=== PATIENT | male | born 1945 | race Caucasian/White ===

== ENCOUNTER 2017-06-22 23:12 | Emergency (ER) | payer MEDICARE ==
[2017-06-22 23:37] LABS: BASOPHILS 0.2 % (0-2); EOSINOPHILS 4.8 % (0-7); HEMATOCRIT 38.5 % (42.0-54.0); HEMOGLOBIN 13.1 g/dL (13.5-17.5); IMMATURE GRANULOCYTES 1.4 % (0-5); LYMPHOCYTES 22.1 % (15-50); MCH 29.6 pg (26.0-34.0); MCV 86.9 fL (80.0-100.0); MEAN PLATELET VOLUME 11.9 fL (7.4-10.4); MONOCYTES 12.7 % (2-11); NEUTROPHILS 58.8 % (40-80); PLATELET COUNT 170 10x3/uL (130-400); RBC 4.43 10x6/uL (4.20-6.10); RDW 14.4 % (11.5-14.5); WBC 8.8 10x3/uL (4.8-10.8)
[2017-06-23 00:01] LABS: ALBUMIN 3.3 g/dL (3.4-5.0); BILIRUBIN - TOTAL 0.51 mg/dL (0.2-1.3); CALCIUM 8.6 mg/dL (8.5-10.1); CARBON DIOXIDE 27.3 mmol/L (21.0-32.0); CREATININE - SERUM 1.5 mg/dL (0.6-1.3); PROTEIN - SERUM 7.3 g/dL (6.4-8.2)
[2017-06-23 00:03] LABS: INR 1.11 (0.85-1.17); PROTIME 13.9 SECONDS (11.6-15.0)
[2017-06-23 00:04] LABS: APTT 36.2 SECONDS (22.8-39.4)
[2017-06-23 00:05] LABS: ANION GAP 14.5 mmol/L (8-16); POTASSIUM - SERUM 3.8 mmol/L (3.5-5.1)
== END 2017-06-23 01:25 | disposition home or self-care (01) ==
LOC: D.ER 23:12 → EDBD 23:12 → D.ER 06-23 01:25
PROVIDERS: Physician Assistant Medical
DX: G45.9 Transient cerebral ischemic attack, unspecified (principal); I10 Essential (primary) hypertension; I45.2 Bifascicular block

== ENCOUNTER 2017-11-03 13:06 | Inpatient (IN) | payer MEDICARE ==
[~2017-11-03] VITALS: Ht 170.2 cm; Wt 74.8 kg
--- NOTE | ~2017-11-03 | HP ---
PATIENT: RON MARX MEDICAL RECORD: [id number] ACCOUNT: [id number] LOCATION:[id number] : [id number] ADMISSION DATE: 11/03/17 HISTORY AND PHYSICAL EXAMINATION HISTORY OF PRESENT ILLNESS: A 72-year-old male brought into the Emergency Room via EMS with right lower quadrant abdominal pain, began last night, worse during the day today. Reported a brief episode of nausea, vomiting, diarrhea. Symptoms significantly worse today. PAST MEDICAL HISTORY: Significant for diabetes, diet controlled; chronic AFib; colon resection for necrotic bowel; appendectomy; cholecystectomy. ALLERGIES: REPORTED SULFA AND WELLBUTRIN. CURRENT MEDICATIONS: Listed as metoprolol 25 mg daily, morphine b.i.d., ondansetron 4 mg every 4 hours, losartan 50 mg daily, levothyroxine 300 mcg daily, lactobacillus, hydralazine 50 mg t.i.d., Eliquis 5 mg b.i.d., buspirone 5 mg t.i.d., amlodipine 10 mg daily, pyridoxine 100 mg once a day, sotalol 120 mg b.i.d., venlafaxine 75 mg daily. REVIEW OF SYSTEMS: GENERAL: No acute change in weight or appetite. HEENT: No cephalgia, visual changes, tinnitus, epistaxis, or dysphagia. CARDIOVASCULAR: History as above. Denies chest pain, denies palpitations. PULMONARY: Denies hemoptysis, denies night sweats. GASTROINTESTINAL: Denies hematemesis, hematochezia, or melena. Does admit the right lower quadrant abdominal pain, acute onset. Brief nausea and vomiting. MUSCULOSKELETAL: No acute changes. ENDOCRINE: Denies polyuria, polydipsia, or polyphagia. Reports acute elevation in his glucose to the 300s, where he is normally controlled with diet. PHYSICAL EXAMINATION: VITAL SIGNS: Temperature 97.9, blood pressure 156/82, heart rate 85, respirations 16, O2 sats 99%. GENERAL: Alert, oriented, presently in no acute distress. He received Dilaudid in the Emergency Room. HEENT: Head: Normocephalic, atraumatic. Eyes: Pupils are equally round and reactive to light and accommodation. Extraocular muscles are intact. Conjunctivae not injected. Ears: Canals patent. TMs are intact. Nose: Nares patent without drainage. Throat: No erythema. No exudates. NECK: Supple. No lymphadenopathy. No JVD. HEART: Regular rate and rhythm. No S3 or S4. No rub. LUNGS: Clear to auscultation bilaterally. Breathing is nonlabored. ABDOMEN: Hypoactive bowel sounds. Right lower quadrant tenderness. No rebound, no guarding, no palpable mass. EXTREMITIES: Present times 4. No edema. NEUROLOGIC: Intact. SKIN: Warm and dry. No rash. ASSESSMENT AND PLAN: 1. Right lower quadrant abdominal pain. Discussed the case with general surgery, Dr. Ervin. Agrees with IV antibiotics, IV fluids, bowel rest. He will follow. CT of the abdomen, no acute findings. 2. Diabetes. Sliding scale insulin. HISTORY AND PHYSICAL [id number] RON MARX 3. Chronic atrial fibrillation. Resume home medications. Monitor. TRANSINT:[id number] Voice Confirmation ID: [id number] DOCUMENT ID: [id number] MARIE PALACIO DO at 0751 CC: [id number] DICTATION DATE: 11/03/171804 [employer]: 11/03/172025 ADM IN [facility] [address] [place] [address]
[2017-11-03 13:49] LABS: BASOPHILS 0.1 % (0-2); EOSINOPHILS 0.3 % (0-7); HEMATOCRIT 41.2 % (42.0-54.0); HEMOGLOBIN 14.3 g/dL (13.5-17.5); IMMATURE GRANULOCYTES 0.6 % (0-5); LYMPHOCYTES 10.7 % (15-50); MCH 29.2 pg (26.0-34.0); MCHC 34.7 g/dL (31.0-37.0); MCV 84.1 fL (80.0-100.0); MEAN PLATELET VOLUME 12.3 fL (7.4-10.4); MONOCYTES 3.6 % (2-11); NEUTROPHILS 84.7 % (40-80); PLATELET COUNT 198 10x3/uL (130-400); RDW 14.6 % (11.5-14.5); WBC 14.2 10x3/uL (4.8-10.8)
[2017-11-03 14:11] LABS: ALBUMIN 3.6 g/dL (3.4-5.0); ANION GAP 21.2 mmol/L (8-16); BILIRUBIN - TOTAL 1.34 mg/dL (0.2-1.3); CALCIUM 10.5 mg/dL (8.5-10.1); CARBON DIOXIDE 22.5 mmol/L (21.0-32.0); CREATININE - SERUM 1.4 mg/dL (0.6-1.3); POTASSIUM - SERUM 3.7 mmol/L (3.5-5.1); PROTEIN - SERUM 8.3 g/dL (6.4-8.2)
[2017-11-03 17:42] VITALS: BP 156/82; BMI 25.9
[2017-11-03] MEDS ORDERED: NORVASC10 MG PO (17:45)
[2017-11-03] MEDS ORDERED: ELIQUIS5 MG PO (17:46)
[2017-11-03] MEDS ORDERED: HYDRALAZINE HCL50 MG PO (17:46)
[2017-11-03] MEDS ORDERED: DEXILANT60 MG PO (17:47)
[2017-11-03] MEDS ORDERED: PROBIOTIC1 EAC1 PO (17:47)
[2017-11-03] MEDS ORDERED: LEVOXYL200 MCG PO (17:47)
[2017-11-03] MEDS ORDERED: COZAAR100 MG PO (17:48)
[2017-11-03] MEDS ORDERED: TOPROL XL25 MG PO (17:53)
[2017-11-03] MEDS ORDERED: MS CONTIN15 MG PO (17:54)
[2017-11-03] MEDS ORDERED: ZOFRAN4 MG PO (17:56)
[2017-11-03] MEDS ORDERED: PYRIDOXINE HCL100 MG PO (17:57)
[2017-11-03] MEDS ORDERED: EFFEXOR75 MG PO (17:58)
[2017-11-03] MEDS ORDERED: BETAPACE 120 M120 MG PO (17:58)
[2017-11-03] MEDS ORDERED: VITAMIN C1000 MG PO (17:59)
[2017-11-03] MEDS ORDERED: VITAMIN D31000 UNIT PO (18:00)
[2017-11-03 21:12] VITALS: BP 131/71
[2017-11-04 01:20] LABS: APPEARANCE CLEAR (CLEAR); BILIRUBIN NEGATIVE (NEGATIVE); COLOR YELLOW (YELLOW); GLUCOSE NEGATIVE (NEGATIVE); KETONE NEGATIVE (NEGATIVE); NITRITE NEGATIVE (NEGATIVE); PROTEIN 2+ mg/dL (NEGATIVE); SPECIFIC GRAVITY 1.015 (1.005-1.020); UROBILINOGEN NORMAL (NORMAL)
[2017-11-04 04:47] LABS: BASOPHILS 0.1 % (0-2); EOSINOPHILS 0.8 % (0-7); HEMATOCRIT 37.8 % (42.0-54.0); HEMOGLOBIN 12.9 g/dL (13.5-17.5); IMMATURE GRANULOCYTES 0.4 % (0-5); LYMPHOCYTES 18.9 % (15-50); MCH 29.3 pg (26.0-34.0); MCHC 34.1 g/dL (31.0-37.0); MCV 85.9 fL (80.0-100.0); MEAN PLATELET VOLUME 11.8 fL (7.4-10.4); MONOCYTES 7.7 % (2-11); NEUTROPHILS 72.1 % (40-80); PLATELET COUNT 181 10x3/uL (130-400); WBC 12.6 10x3/uL (4.8-10.8)
[2017-11-04 05:08] LABS: ALBUMIN 3.3 g/dL (3.4-5.0); ANION GAP 13.2 mmol/L (8-16); BILIRUBIN - TOTAL 1.11 mg/dL (0.2-1.3); CALCIUM 9.4 mg/dL (8.5-10.1); CARBON DIOXIDE 29.8 mmol/L (21.0-32.0); CREATININE - SERUM 1.2 mg/dL (0.6-1.3); PROTEIN - SERUM 7.6 g/dL (6.4-8.2)
[2017-11-04 05:09] LABS: INR 1.12 (0.85-1.17)
[2017-11-04 05:10] LABS: APTT 34.7 SECONDS (22.8-39.4)
[2017-11-04 08:38] VITALS: BP 132/62
[2017-11-04 12:18] VITALS: BMI 25.8
[2017-11-04 12:23] VITALS: BP 113/58
[2017-11-04 14:26] VITALS: Ht 170.2 cm; Wt 74.8 kg
[2017-11-04 16:37] VITALS: BP 123/74
[2017-11-04 20:29] VITALS: BP 131/71
[2017-11-05 04:14] VITALS: BP 127/70
[2017-11-05 05:01] LABS: BASOPHILS 0.2 % (0-2); EOSINOPHILS 2.7 % (0-7); HEMATOCRIT 37.7 % (42.0-54.0); HEMOGLOBIN 12.9 g/dL (13.5-17.5); IMMATURE GRANULOCYTES 0.4 % (0-5); LYMPHOCYTES 21.4 % (15-50); MCH 29.5 pg (26.0-34.0); MCHC 34.2 g/dL (31.0-37.0); MCV 86.1 fL (80.0-100.0); MONOCYTES 9.1 % (2-11); NEUTROPHILS 66.2 % (40-80); PLATELET COUNT 184 10x3/uL (130-400); RBC 4.38 10x6/uL (4.20-6.10); RDW 14.6 % (11.5-14.5); WBC 11.5 10x3/uL (4.8-10.8)
[2017-11-05 05:26] LABS: ANION GAP 17.1 mmol/L (8-16); BILIRUBIN - TOTAL 1.15 mg/dL (0.2-1.3); CALCIUM 8.6 mg/dL (8.5-10.1); CARBON DIOXIDE 25.7 mmol/L (21.0-32.0); CREATININE - SERUM 1.2 mg/dL (0.6-1.3); MAGNESIUM - SERUM 1.5 mg/dL (1.8-2.4); PHOSPHOROUS 3.4 mg/dL (2.5-4.9); POTASSIUM - SERUM 3.8 mmol/L (3.5-5.1); PROTEIN - SERUM 7.1 g/dL (6.4-8.2)
[2017-11-05 08:32] VITALS: BP 141/81
[2017-11-05 11:44] VITALS: BP 132/76
[2017-11-05 15:17] VITALS: BP 130/74
[2017-11-05 21:33] VITALS: BP 123/68
[2017-11-06 00:25] VITALS: BP 118/56
[2017-11-06 04:21] VITALS: BP 122/59
[2017-11-06 04:53] LABS: BASOPHILS 0.3 % (0-2); EOSINOPHILS 2.3 % (0-7); HEMATOCRIT 36.4 % (42.0-54.0); HEMOGLOBIN 12.4 g/dL (13.5-17.5); IMMATURE GRANULOCYTES 0.4 % (0-5); LYMPHOCYTES 17.9 % (15-50); MCH 28.8 pg (26.0-34.0); MCHC 34.1 g/dL (31.0-37.0); MCV 84.7 fL (80.0-100.0); MEAN PLATELET VOLUME 11.5 fL (7.4-10.4); MONOCYTES 9.6 % (2-11); NEUTROPHILS 69.5 % (40-80); PLATELET COUNT 166 10x3/uL (130-400); RDW 14.4 % (11.5-14.5); WBC 10.8 10x3/uL (4.8-10.8)
[2017-11-06 05:12] LABS: ALBUMIN 3.3 g/dL (3.4-5.0); ANION GAP 13.2 mmol/L (8-16); BILIRUBIN - TOTAL 1.1 mg/dL (0.2-1.3); CALCIUM 8.4 mg/dL (8.5-10.1); CARBON DIOXIDE 25.8 mmol/L (21.0-32.0); CREATININE - SERUM 1.2 mg/dL (0.6-1.3); PROTEIN - SERUM 7.1 g/dL (6.4-8.2)
[2017-11-06 12:01] VITALS: BP 138/70
[2017-11-06 16:24] VITALS: BP 90/43
[2017-11-06 20:54] VITALS: BP 140/70
[2017-11-07 00:49] VITALS: BP 148/74
[2017-11-07 04:48] LABS: BASOPHILS 0.3 % (0-2); EOSINOPHILS 2.7 % (0-7); HEMATOCRIT 35.6 % (42.0-54.0); HEMOGLOBIN 12.2 g/dL (13.5-17.5); IMMATURE GRANULOCYTES 0.3 % (0-5); LYMPHOCYTES 18.1 % (15-50); MCH 28.9 pg (26.0-34.0); MCHC 34.3 g/dL (31.0-37.0); MCV 84.4 fL (80.0-100.0); MEAN PLATELET VOLUME 11.4 fL (7.4-10.4); MONOCYTES 10.8 % (2-11); NEUTROPHILS 67.8 % (40-80); PLATELET COUNT 168 10x3/uL (130-400); RBC 4.22 10x6/uL (4.20-6.10); RDW 14.4 % (11.5-14.5); WBC 10.1 10x3/uL (4.8-10.8)
[2017-11-07 04:57] VITALS: BP 148/81
[2017-11-07 05:14] LABS: ANION GAP 17.2 mmol/L (8-16); CALCIUM 8.5 mg/dL (8.5-10.1); CARBON DIOXIDE 21.2 mmol/L (21.0-32.0); CREATININE - SERUM 1.1 mg/dL (0.6-1.3); MAGNESIUM - SERUM 1.5 mg/dL (1.8-2.4); POTASSIUM - SERUM 3.4 mmol/L (3.5-5.1)
[2017-11-07 05:17] LABS: PHOSPHOROUS 2.5 mg/dL (2.5-4.9)
[2017-11-07] MEDS ORDERED: VANCOMYCIN250 MG/51 PO (06:11)
[2017-11-07] MEDS ORDERED: FLAGYL500 MG PO (06:11)
[2017-11-11 07:10] LABS: OVA + PARASITE EXAM Final report (())
[2017-11-13 16:16] LABS: AEROBE ID Final report (())
== END 2017-11-07 08:39 | disposition home or self-care (01) | DRG 373 ==
LOC: D.ER 13:06 → D.MS 17:07
PROVIDERS: Emergency Medicine; Family Medicine; Internal Medicine Gastroenterology; Physician Assistant
PROC: 0DBE8ZX Excision of Large Intestine, Via Natural or Artificial Opening Endoscopic, Diagnostic (ICD-10-PCS; 2017-11-06)
PROC: 0DBP8ZX Excision of Rectum, Via Natural or Artificial Opening Endoscopic, Diagnostic (ICD-10-PCS; principal; 2017-11-06 07:00)
DX: A04.72 Enterocolitis due to Clostridium difficile, not specified as recurrent (principal); E11.43 Type 2 diabetes mellitus with diabetic autonomic (poly)neuropathy; K31.84 Gastroparesis; I48.0 Paroxysmal atrial fibrillation; K57.30 Diverticulosis of large intestine without perforation or abscess without bleeding; K62.1 Rectal polyp; K64.8 Other hemorrhoids